=== PATIENT | male | born 2000 | race Caucasian/White ===

== ENCOUNTER 2019-07-08 09:22 | Outpatient (CLI) | payer BC ==
--- NOTE | 2019-07-08 11:04 | MRI ---
MR OF THE LEFT KNEE WITHOUT CONTRAST INDICATION: 19-year-old male with left knee pain after injury months ago.; Difficulty in turning left knee with left knee popping since the injury. TECHNIQUE: Axial and coronal PD fat sat, sagittal T2 fat sat, sagittal PD turbo spin echo and T1 brionna nal images were obtained of the left knee. COMPARISON: None. FINDINGS: Joint effusion: None. Semimembranosus-medial gastrocnemius popliteal cyst: Tiny Ligaments: The ACL, PCL, MCL and LCLC are intact. Extensor mechanism: Intact. Menisci: There is a partial-thickness, oblique tear involving the central free edge of the body of th e lateral meniscus. The medial meniscus appears intact. Articular cartilage: Intact. Osseous structures: Normal marrow signal. Popliteus and IT band: Normal. IMPRESSION: 1. Partial-thickness oblique tear involving the central created of the lateral meniscal body.
== END 2019-07-08 09:23 | disposition home or self-care (01) ==
LOC: SCSMRI 09:22
PROVIDERS: ATTEND Orthopaedic Surgery
DX: M23.92 Unspecified internal derangement of left knee (principal); S83.282A Other tear of lateral meniscus, current injury, left knee, initial encounter